=== PATIENT | female | born 1960 | race Caucasian/White ===

== ENCOUNTER 2017-06-15 05:42 | Day surgery (SDC) | payer MEDICARE ==
[~2017-06-15] VITALS: Ht 165.1 cm; Wt 98.0 kg
[~2017-06-15 05:42] MED LIST: AMARYL4 M1 PO; AMBIEN5 M1 PO; ASPIRIN325 M3 PO; BICARSIM80 M1 PO; COMPAZINE10 MG PO; CYMBALTA30 M1 PO; JANUVIA100 M1 PO; KEFLEX500 M4 PO; LIPITOR40 M1 PO; LISINOPRIL10 M1 PO; METFORMIN HCL1000 M2 PO; MULTIVITAMINS1 EAC6 PO; PERCOCET 5-3251 EACH PO; PERCOCET 7.5-31 EAC1 PO; POTASSIUM CHLO10 ME1 PO; POTASSIUM CHLO10 ME2 PO; PRILOSEC OTC20 M1; ROPINIROLE HCL4 M2 PO; TYLENOL325 M2 PO; VICTOZA 2-0.6 MG/0.1 PO; VICTOZA 3-0.6 MG/0.2 SC; XALATAN2.5 M1 EACH EYE
[2017-06-16 07:24] LABS: HCT-HEMATOCRIT 34.3 % (34.0-49.0); HGB-HEMOGLOBIN 10.9 gm/dl (12.0-15.5); MCV (MEAN CELL VOLUME) 83.9 fl (82.0-96.0)
--- NOTE | 2017-06-16 13:43 | NUR ---
VIRTUAL CARE NOTE: PT SITTING ON CHAIR, STATES HAVING HEARING PROBLEM CAN'T HEAR VIRUTAL NURSE WELL. DISCHARGE PLAN DISCUSSED WITH PT, SHE SAID SHE HAS A FRIEND TO HELP HER AT HOME. VN DISCUSSED WITH SW AND FLOOR NURSE, WILL HAVE PT BALAJI TEACHING DONE AND CONTINUE TO ASSESS FOR THE NEEDS AT DISCHARGE.
--- NOTE | 2017-06-16 20:39 | NUR ---
VIRTUAL CARE NOTE: PT. STATES SHE IS IN BED. UNABLE TO VIEW HER BECAUSE THE CAMERA IS POINTING TO THE CEILING. SHE STATES HER PAIN MEDS ARE KEEPING HER PAIN TOLERABLE AND THAT SHE HAS BEEN WORKING WITH HER BALAJI CARES WITH THE STAFF AND FEELS SHE CAN HANDLE THEM WITH THE HOME SUPPORT SHE HAS OKAY. STATES A LADY GAVE HER A NUMBER IN CASE THINGS CHANGE AT HOME. THIS NURSE WILL CLARIFY THIS WITH AM VN. DENIES FURTHER NEEDS AT THIS TIME. EDUCATION PROVIDED THAT SHE NEED TO GET UP WITH ASSISTANCE AND INSTUCTED TO CALL FOR FUTURE NEEDS. STATES VERBAL AGREEMENT.
--- NOTE | 2017-06-17 14:03 | NUR ---
VIRTUAL CARE NOTE: PT DRESSED READY TO GO HOME, FRIENDS IN THE ROOM. DISCHARGE INSTRUCTIONS GIVEN TO PT AND FRIEDNS. PT DENIES QUESTIONS. [facility] WILL FOLLOW WITH CARES AT HOME AND ASSISTED WITH DRAIN CARE. INFORMED FLOOR NURSE DISCHARGE TEACHING DONE.
== END 2017-06-17 14:20 ==
LOC: SRG 05:42 → SHSA 05:42 → SRG 06:00 → ORW 08:44 → PACU 11:29 → SRG 11:30 → 5WD 14:00 → SRG 06-17 14:20
PROVIDERS: Surgery
PROC: 0HTV0ZZ Resection of Bilateral Breast, Open Approach (ICD-10-PCS; principal; 2017-06-15)
DX: C50.912 Malignant neoplasm of unspecified site of left female breast (principal); I10 Essential (primary) hypertension; E11.9 Type 2 diabetes mellitus without complications; K21.9 Gastro-esophageal reflux disease without esophagitis; E78.00 Pure hypercholesterolemia, unspecified; F32.9 Major depressive disorder, single episode, unspecified; Z91.040 Latex allergy status; Z79.899 Other long term (current) drug therapy; Z79.82 Long term (current) use of aspirin; Z86.73 Personal history of transient ischemic attack (TIA), and cerebral infarction without residual deficits; Z98.890 Other specified postprocedural states; Z90.710 Acquired absence of both cervix and uterus
CPT/HCPCS: J0690; J1650; J1815; J2250; J2270; J3010